=== PATIENT | female | born 1975 | race American Indian/Alaskan Native ===

== ENCOUNTER 2021-02-07 10:44 | Day surgery (SDC) | payer OTHER ==
--- NOTE | 2021-02-06 12:24 | History and Physical Report ---
History of Present Illness Date of examination: 02/06/21 Date of admission: 02/07/21 Chief complaint: vaginal bleeding History of present illness: Pt has menometrorrhagia and 3cm endometrial mass noted on SIS in 2018 and again in 2020.Embx done 12/2020 was noted to be normal. She was lost to f/u for Embx and removal of mass in . She desires removal of the mass followed by endometrial ablation. She is aware that if the mass is not able to be removed completely, the ablation may not be able to take place and also due to having fibroids, the device may not be able to seat properly in the uterine cavity though the fibroids appeard to be in the myometrium. All risk, benefits and alternatives were d/w pt and all questions were addressed and answered. Consents singed and placed on the chart. Past History : 5 Term Births: 2 Premature Births: 0 Living Children: 2 Para: 2 Mult. Births: 0 Prev : 0 Aborta: 3 Elect. Ab: 1 Spont. Ab: 2 Ectopics: 0 # 1 Delivery date: 1994 Delivery type: EAB # 2 Delivery date: 01/10/2005 Weeks Gestation: 39 labor: no Delivery type: Hours of labor: 8 Anesthesia type: none Delivery location: [place] Infant Sex: Male weight: 7-10 Name: Crispin Comments: no complications # 3 Delivery date: 08/05/2011 Weeks Gestation: 6 Delivery type: SAB Comments: no D&C # 4 Delivery date: 01/14/2012 Delivery type: SAB Comments: W/ D&C # 5 Delivery date: 04/02/2013 Weeks Gestation: 39 Delivery type: Vaginal Anesthesia type: IV medication Delivery location: [facility] Infant Sex: female weight: 3618 Comments: 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 of genital herpes: yes Partner hx. of genital herpes: yes Hx of STD: hsv Active Medications (reviewed today): IBUPROFEN 800 MG ORAL TABLET (IBUPROFEN) 1 po q6 hr prn pain IRON () MULTI VITAMINS () Current Allergies (reviewed today): No known allergies Past Medical History: Reviewed history from 08/11/2012 and no changes required: Asthma Neurologic Disorder Migraine Past Surgical History: Reviewed history from 05/13/2012 and no changes required: b/l knee Knee ArthroscopyBilateral D&C: Family History Summary: Reviewed history Last on 07/02/2016 and no changes required:01/08/2021 General Comments - FH: No Family History of Breast Cancer No Family History of Colon Cancer No Family History of Ovarvian Cancer No Family History of DVT/PE on OCP Family History of Coronary Heart Disease Family History of Diabetes Family History of CVA or Stroke Family History of Hypertension Social History: Reviewed history from 06/11/2019 and no changes required: 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 Risk Factors: Smoked Tobacco Use: Never smoker Smokeless Tobacco Use: Never Passive Smoke Exposure: no HIV High Risk Behavior: no Seatbelt Use: 100 % Mammogram History: Date of Last Mammogram: 07/15/2018 Results: Normal Bilateral Review of Systems See HPI Laboratory Results Urine HCG: negative Past History Past Medical History: other (see hpi) Past Surgical History: other (see hpi) 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: other (see hpi) Family/Genetic History: other (see hpi) Social history: , prescription drug abuse - Obstetrical History : 5 Medications and Allergies Allergies Allergy/AdvReac Type Severity Reaction Status Date / Time No Known Allergies Allergy Unverified 03/29/13 11:13 Home Medications Medication Instructions Recorded Confirmed Last Taken Type Albuterol Sulfate [Proventil Hfa] 2 puff IH PRN PRN 02/02/21 02/02/21 Unknown History Ferrous Gluconate [Ferrous 324 mg PO DAILY 02/02/21 02/02/21 Unknown History Gluconate 324 MG] Ibuprofen [Advil Migraine] 200 mg PO PRN PRN 02/02/21 02/02/21 Unknown History Review of Systems All systems: negative - Physical Exam Cardiovascular: Normal S1, Normal S2 Lungs: Positive: Clear to auscultation, Normal air movement Abdomen: Positive: normal appearance, soft. Negative: distention, tenderness, guarding Genitourinary (Female): Positive: other (deferred until EUA) Extremities: Positive: normal. Negative: tenderness, edema Deep Tendon Reflex Grade: Normal +2 Results All other labs normal. Assessment and Plan - Patient Problems (1) Menometrorrhagia Status: Acute Plan to address problem: -to OR for myosure removal of the endometrial mass followed by novasure ablation -consents signed and placed on the chart. (2) Endometrial mass Status: Acute (3) Uterine fibroid Status: Acute Qualifiers: Uterine leiomyoma location: intramural Qualified Code(s): D25.1 - Intramural leiomyoma of uterus Plan to address problem: -to OR for myosure removal of the endometrial mass followed by novasure ablation -consents signed and placed on the chart.
[~2021-02-07 10:44] MED LIST: ceFAZolin/Water 2 GM/20 ML 2 GM/20 ML SYRINGE IV NR
[2021-02-07] MEDS ORDERED: ONDANSETRON 4 MG/2 ML INJ IV PRN (11:41)
[2021-02-07] MEDS ORDERED: HYDROmorphone 1 MG/1 ML INJ IV PRN ×2 (11:41)
[2021-02-07] MEDS ORDERED: LACTATED RINGERS 1,000 ML IV SCH (11:45)
--- NOTE | 2021-02-07 11:47 | Anesthesia Consultation ---
Anesthesia Consult and Med Hx Date of service: 02/07/21 - Airway Anesthetic Teeth Evaluation: Good ROM Head & Neck: Adequate Mental/Hyoid Distance: Adequate Mallampati Class: Class III Intubation Access Assessment: Probably Good - Pre-Operative Health Status ASA Pre-Surgery Classification: ASA3 Proposed Anesthetic Plan: General - Pulmonary Hx Smoking: Yes (THC 2 X WEEK) Hx Asthma: Yes (LAST INHALER USE 2 YRS AGO) COPD: No Hx Pneumonia: No Hx Sleep Apnea: Yes (DX SLEEP APNEA , NO CPAP USE) - Cardiovascular System Hx Hypertension: No - Central Nervous System Hx Seizures: No Hx Psychiatric Problems: No - Endocrine Hx Renal Disease: No Hx End Stage Renal Disease: No Hx Thyroid Disease: Yes Hx 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
--- NOTE | 2021-02-07 11:47 | Anesthesia Day of Surgery ---
Anesthesia Day of Surgery - Day of Surgery Patient Examined: Yes Patient H&P Reviewed: Yes Patient is NPO: Yes
[2021-02-07] MEDS ORDERED: MIDAZOLAM 2 MG/2 ML INJ IV NR (12:00)
[2021-02-07] MEDS ORDERED: HYDROmorphone 1 MG/1 ML INJ ONE (12:23)
[2021-02-07] MEDS ORDERED: LIDOCAINE MPF (2%) 20 MG/1 ML VIAL 5 ML ONE (12:24)
[2021-02-07] MEDS ORDERED: propofoL 200 MG/20 ML VIAL IV ONE (12:24)
[2021-02-07] MEDS ORDERED: ONDANSETRON 4 MG/2 ML INJ ONE (13:38)
[2021-02-07] MEDS ORDERED: dexAMETHasone 20 MG/5 ML VIAL ONE (13:38)
[2021-02-07] MEDS ORDERED: SODIUM CHLORIDE 0.9% IRRIG SOLN 2000 ML IR ONE ×2 (13:48)
--- NOTE | 2021-02-07 14:17 | Operative Report ---
Operative Report Operative Report: Date of procedure: 02/07/2021 Pre-operative diagnosis: Intrauterine mass Uterine fibroids Menorrhagia Metrorrhagia Post-operative diagnosis: Same Procedure name(s): 1. Hysteroscopy 2. MyoSure 3. NovaSure Surgeon: Senia Sawyer M.D. Oracle Database Analyst: ROBERT Anesthesia: General endotracheal anesthesia EBL: 50-100ml Urine output: Approximately 100 mL of urine out via straight catheterization prior to the onset of the procedure Fluids: 1 L Findings: 4- 5 cm fundal uterine fibroid noted in the uterine cavity also there was a smaller polyp note. Nabothian cysts noted on external cervix Indications: Patient with history of prolonged heavy menstrual bleeding as well as bleeding between periods. Patient noted to have mass diagnosed on saline infused sonogram that measured approximately 3 cm. Patient desired removal of mass as well as treatment for heavy menstrual bleeding. All risk benefits and alternatives were discussed with the patient consents were signed and placed on the chart. Procedure: Patient was taken to the operating room where she was placed under general endotracheal anesthesia she was then prepped and draped in normal sterile fashion in dorsal lithotomy position with legs in Chris stirrups. Straight catheterization of the bladder was performed at this time. Sterile speculum was placed inside of the vagina to visualize the entire cervix. The anterior lip of the cervix was grasped with a single-tooth tenaculum and the uterus was sounded to 9 cm. The cervix was then dilated in order to allow passage of the hysteroscope. Hysteroscopy yielded the above-stated findings. About 4-5endometrial masses were noted and was consistent with a fibroid. Beginning at the stalk of the fibroid, myosure device was used to systematically remove the entire fibroid. Both ostia were noted on exam but limited by pt menstruation. The cavity did appear to be clear of all debris and masses. Prior to the Myosure the uterus was sounded to approximately 10 cm. The cervical length was noted to be 6 cm. The uterine cavity length was calculated to be 6 cm. The cervix was then dilated more to allow passage of the NovaSure device. With placement of the NovaSure device the cavity width was noted to be 4.5 cm. The integrity of the seal was then tested. The device did pass the te sting. The power that was used for the NovaSure ablation was 149. The amount of time of the ablation was 59 seconds. All instruments were removed from the vagina and the cervix. Patient tolerated the procedure well. All counts were correct.
--- NOTE | 2021-02-07 14:18 | Short Stay Summary ---
Short Stay Documentation Date of service: 02/07/21 - History H&P: dictated Social history: , prescription drug abuse - Allergies and Medications Current Medications: Allergies No Known Allergies Allergy (Unverified 03/29/13 11:13) Home Medications Medication Instructions Recorded Confirmed Last Taken Type Albuterol Sulfate [Proventil Hfa] 2 puff IH PRN PRN 02/02/21 02/02/21 Unknown History Ferrous Gluconate [Ferrous 324 mg PO DAILY 02/02/21 02/07/21 02/06/21 12:00 History Gluconate 324 MG] Ibuprofen [Advil Migraine] 200 mg PO PRN PRN 02/02/21 02/07/21 02/06/21 12:00 History Active Medications Hydromorphone HCl (Hydromorphone 1 Mg/1 Ml Inj) 0.25 mg IV Q10MIN PRN PRN Reason: Pain, Moderate (4-6) Stop: 02/07/21 23:59 Hydromorphone HCl (Hydromorphone 1 Mg/1 Ml Inj) 0.5 mg IV Q10MIN PRN PRN Reason: Pain , Severe (7-10) Stop: 02/07/21 23:59 Lactated Ringer's (Lactated Ringers) 1,000 mls @ 125 mls/hr IV DIRECT FLYNN Last Admin: 02/07/21 12:15 Dose: 125 mls/hr Documented by: Midazolam HCl (Midazolam 2 Mg/2 Ml Inj) 2 mg IV PREOP NR Stop: 02/07/21 23:59 Last Admin: 02/07/21 12:30 Dose: 2 mg Documented by: Ondansetron HCl (Ondansetron 4 Mg/2 Ml Inj) 4 mg IV ONCE PRN PRN Reason: Nausea And Vomiting Stop: 02/07/21 23:59 - Brief post op/procedure progress note Date of procedure: 02/07/21 Pre-op diagnosis: fibroids, intrauterine mass, menorrhagia Post-op diagnosis: same Procedure: hysteroscopy myosure novasure hysteroscopic myomectomy Anesthesia: GETA Estimated blood loss: 50-100ml Pathology: list (intrauterine contents) Specimen disposition: to lab Condition: stable - Hospital course Hospital course: Pt admitted for above states procedure. Pt had procedure which was not complicated. She had recovery in the PACU that was not complicated. She will be d/c to home after she has met d/c criteria. - Disposition Condition at discharge: Good Disposition: DC-01 TO HOME OR SELFCARE - Discharge Diagnoses (1) Menometrorrhagia Status: Acute (2) Endometrial mass Status: Acute (3) Uterine fibroid Status: Acute Qualifiers: Uterine leiomyoma location: intramural Qualified Code(s): D25.1 - Intramural leiomyoma of uterus Short Stay Discharge Plan Activity: no restrictions Weight Bearing Status: Weight Bear as Tolerated Diet: regular Additional Instructions: ACTIVITY: NO RESTRICTIONS WEIGHT BEARING STATUS: WEIGHT BEAR TOLERATED DIET: REGULAR Follow up with: MELIDA PHAM MD [Primary Care Provider] - 7 Days Forms: Outpatient Surgery DC Inst. Prescriptions: Acetaminophen/Codeine [Tylenol /Codeine # 3 tab] 1 tab PO Q6H PRN #10 tab PRN Reason: moderate pain
[2021-02-07 15:16] VITALS: BP 119/77
--- NOTE | 2021-02-07 15:20 | Post Anesthesia Evaluation ---
- Post Anesthesia Evaluation Patient Participated: Yes Airway Patent: Yes Stable Respiratory Function: Yes Nausea/Vomiting: No Temp > 96.8F: Yes Pain Manageable: Yes Adequeate Hydration: Yes Anesthesia Complications: No Block Receding Appropriately: Not Applicable Patient on Ventilator: No
== END 2021-02-07 15:55 | disposition home or self-care (01) ==
LOC: OR 10:44
PROVIDERS: ATTEND Obstetrics & Gynecology
DX: D25.1 Intramural leiomyoma of uterus (principal); N93.9 Abnormal uterine and vaginal bleeding, unspecified; N94.89 Other specified conditions associated with female genital organs and menstrual cycle; J45.909 Unspecified asthma, uncomplicated; E03.9 Hypothyroidism, unspecified; E66.9 Obesity, unspecified; G47.30 Sleep apnea, unspecified; Z79.899 Other long term (current) drug therapy; Z98.890 Other specified postprocedural states; Z68.41 Body mass index [BMI] 40.0-44.9, adult
CPT/HCPCS: 58563; 81025; 88305; A4217; C1782; J1100; J1170; J2250; J2405; J2704; J7120

== ENCOUNTER 2021-03-07 08:22 | Emergency (ER) | payer OTHER ==
--- NOTE | 2021-03-07 09:40 | Emergency Department Report ---
ED Female HPI - General Chief complaint: Vaginal Bleeding Stated complaint: POST SURGERY COMPLICATION Time Seen by Provider: 03/07/21 09:39 Source: patient Mode of arrival: Ambulatory Limitations: No Limitations - History of Present Illness Initial comments: 45 YO AA COMES TO ER WITH VAG BLEEDING SP ABLATION. SHE CALLED HER OBGYN WHO TOLD HER TO COME TO ER FOR BLOOD WORK. PT HAS HX A/C ANEMIA AND SHE IS CONCERNED SHE IS ANEMIC NEEDED TRANSFUSION. SHE REPORTS HGB LOW 7'S IN THE PAST. SHE IS AMBULATORY AND NON ILL ON EXAM. NO CP OR SOB. VAG BLEEDING 1 PAD EVERY 2 HOURS; WORSE OVER THE LAST 12 HOURS NO VAGINAL DISCHARGE MILD CRAMPING NO BACK PAIN ORTHOSTATIC VS ORDERED ON ADMIT TO TRIAGE- RADHA RN TO COMPLETE MD Complaint: vaginal bleeding -: Gradual, days(s) Quality: cramping Consistency: constant Improves with: none Are you Now?: No Associated Symptoms: vaginal bleeding. denies: vaginal discharge - Related Data Sexually active: No Home Medications Medication Instructions Recorded Confirmed Last Taken Albuterol Sulfate [Proventil Hfa] 2 puff IH PRN PRN 02/02/21 02/02/21 Unknown Ferrous Gluconate [Ferrous 324 mg PO DAILY 02/02/21 02/07/21 02/06/21 12:00 Gluconate 324 MG] Ibuprofen [Advil Migraine] 200 mg PO PRN PRN 02/02/21 02/07/21 02/06/21 12:00 Previous Rx's Medication Instructions Recorded Last Taken Type Acetaminophen/Codeine [Tylenol 1 tab PO Q6H PRN #10 tab 02/07/21 Unknown Rx /Codeine # 3 tab] Allergies Allergy/AdvReac Type Severity Reaction Status Date / Time No Known Allergies Allergy Unverified 03/29/13 11:13 ED Review of Systems ROS: Stated complaint: POST SURGERY COMPLICATION Other details as noted in HPI Comment: All other systems reviewed and negative ED Past Medical Hx - Past Medical History Previous Medical History?: Yes Hx Hypertension: No Hx Congestive Heart Failure: No Hx Diabetes: No Hx Deep Vein Thrombosis: No Hx Renal Disease: No Hx Sickle Cell Disease: No Hx Headaches / Migraines: Yes (MIGRAINES) Hx Seizures: No Hx Asthma: Yes (LAST INHALER USE 2 YRS AGO) Hx COPD: No Hx HIV: No - Surgical History Past Surgical History?: Yes - Family History Family history: no significant - Social History Smoking Status: Never Smoker Substance Use Type: None - Medications Home Medications: Home Medications Medication Instructions Recorded Confirmed Last Taken Type Albuterol Sulfate [Proventil Hfa] 2 puff IH PRN PRN 02/02/21 02/02/21 Unknown History Ferrous Gluconate [Ferrous 324 mg PO DAILY 02/02/21 02/07/21 02/06/21 12:00 History Gluconate 324 MG] Ibuprofen [Advil Migraine] 200 mg PO PRN PRN 02/02/21 02/07/21 02/06/21 12:00 History Acetaminophen/Codeine [Tylenol 1 tab PO Q6H PRN #10 tab 02/07/21 Unknown Rx /Codeine # 3 tab] ED Physical Exam - General Limitations: No Limitations General appearance: alert, in no apparent distress - Head Head exam: Present: atraumatic, normocephalic - Eye Eye exam: Present: normal appearance - ENT ENT exam: Present: mucous membranes moist - Neck Neck exam: Present: normal inspection - Respiratory Respiratory exam: Present: normal lung sounds bilaterally. Absent: respiratory distress - Cardiovascular Cardiovascular Exam: Present: regular rate, normal rhythm. Absent: systolic murmur, diastolic murmur, rubs, gallop - GI/Abdominal GI/Abdominal exam: Present: soft, normal bowel sounds - Extremities Exam Extremities exam: Present: normal inspection - Back Exam Back exam: Present: normal inspection - Neurological Exam Neurological exam: Present: alert, oriented X3 - Psychiatric Psychiatric exam: Present: normal affect, normal mood - Skin Skin exam: Present: warm, dry, intact, normal color. Absent: rash ED Course Vital Signs 03/07/21 03/07/21 09:14 10:49 Temperature 98.8 F Pulse Rate 103 H Pulse Rate [ 91 H Lying] Pulse Rate [ 96 H Sitting] Pulse Rate [ 108 H Standing] Respiratory 16 Rate Blood Pressure 123/86 [Left] Blood Pressure 112/80 [Lying] Blood Pressure 129/87 [Sitting] Blood Pressure 142/88 [Standing] O2 Sat by Pulse 99 Oximetry ED Medical Decision Making - Lab Data Result diagrams: 03/07/21 09:44 03/07/21 09:44 - Medical Decision Making Vital Signs 03/07/21 09:14 Temperature 98.8 F Pulse Rate 103 H Respiratory 16 Rate Blood Pressure 123/86 [Left] O2 Sat by Pulse 99 Oximetry Lab Results 03/07/21 03/07/21 Range/Units 09:44 09:44 WBC 11.0 (4.5-11.0) K/mm3 RBC 3.59 L (3.65-5.03) M/mm3 Hgb 10.2 (10.1-14.3) gm/dl Hct 31.9 (30.3-42.9) % MCV 89 (79-97) fl MCH 28 (28-32) pg MCHC 32 (30-34) % RDW 17.3 H (13.2-15.2) % Plt Count 340 (140-440) K/mm3 Sodium 136 L (137-145) mmol/L Potassium 4.4 (3.6-5.0) mmol/L Chloride 102.4 (98-107) mmol/L Carbon Dioxide 23 (22-30) mmol/L Anion Gap 15 mmol/L BUN 14 (7-17) mg/dL Glucose 111 H (65-100) mg/dL Calcium 8.9 (8.4-10.2) mg/dL ORTHOSTATIC BP ORDERED ON ARRIVAL PT AMBULATORY AND NON ILL APPEARING LAST HGB 9.9- REMAINS STABLE TODAY LABS NOTED 1050 HR ON D/C 90- NO CP OR SOB DC HOME WITH DC PLAN OF CARE INCLUDING OBGYN FOLLOW UP VERBALIZES UNDERSTANDING OF DC PLAN OF CARE INCLUDING DIET, ACTIVITY, FOLLOW UP. - Differential Diagnosis RO SYMPTOMATIC ANEMIA Critical care attestation.: If time is entered above; I have spent that time in minutes in the direct care of this critically ill patient, excluding procedure time. ED Disposition Clinical Impression: Vaginal bleeding, Endometriosis Disposition: 01 HOME / SELF CARE / HOMELESS Is pt being admited?: No Does the pt Need Aspirin: No Condition: Stable Instructions: Abnormal Uterine Bleeding Additional Instructions: DIET TOLERATED STAY WELL HYDRATED MOTRIN OR TYLENOL FOR PAIN MED ORDERED TODAY FOLLOW UP WITH OBGYN MICHAEL Referrals: YONATAN PETERSEN MD [Staff Physician] - 3-5 Days Forms: Work/School Release Form(ED) Time of Disposition: 10:43
[2021-03-07 10:17] LABS: Hematocrit 31.9 % (30.3-42.9); Hemoglobin 10.2 gm/dl (10.1-14.3); Mean Corpuscular HGB Conc 32 % (30-34); Mean Corpuscular Volume 89 fl (79-97); Platelet Count 340 K/mm3 (140-440); Red Blood Count 3.59 M/mm3 (3.65-5.03); Red Cell Distribution Width 17.3 % (13.2-15.2)
[2021-03-07 10:36] LABS: Blood Urea Nitrogen 14 mg/dL (7-17); Calcium 8.9 mg/dL (8.4-10.2); Hemolysis Index 0
[2021-03-07 10:52] VITALS: BP 112/80
[2021-03-07 11:15] LABS: BUN/Creatinine Ratio 20
== END 2021-03-07 10:54 | disposition home or self-care (01) ==
LOC: ED 08:22
DX: N93.9 Abnormal uterine and vaginal bleeding, unspecified (principal); N80.9 Endometriosis, unspecified; G43.909 Migraine, unspecified, not intractable, without status migrainosus; Z79.899 Other long term (current) drug therapy
CPT/HCPCS: 36415; 80048; 85027; 86850; 86900; 86901; 99283